=== PATIENT | male | born 1995 | race American Indian/Alaskan Native ===

== ENCOUNTER 2018-06-28 16:29 | Emergency (ER) | payer OTHER ==
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
[2018-06-28 17:36] VITALS: BP 126/65
--- NOTE | 2018-06-28 19:21 | XRay Report ---
PROCEDURE: XR SPINE CERVICAL 2-3V TECHNIQUE: 3 views cervical spine HISTORY: pain no reported trauma COMPARISONS: None FINDINGS: Normal cervical alignment. Vertebral body heights and disc space heights are maintained. Spinal clarissa ar line is not disrupted. Prevertebral soft tissues are normal. C1 lateral masses align normally on C2. The odontoid base is intact. Imaged lung apices are clear. There is no degenerative change. IMPRESSION: No acute fracture or subluxation. No significant degenerative disease.. This document is electronically signed by Vonda Merida MD., Jun 28 2018 07:20:05 PM ET
[2018-06-28] MEDS ORDERED: NORCO 5/325 PO STA (20:46)
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
== END 2018-06-28 21:30 | disposition home or self-care (01) ==
LOC: ED 16:29
DX: S16.1XXA Strain of muscle, fascia and tendon at neck level, initial encounter (principal); R51 Headache; V49.49XA Driver injured in collision with other motor vehicles in traffic accident, initial encounter; X58.XXXA Exposure to other specified factors, initial encounter; Y93.89 Activity, other specified; Y92.89 Other specified places as the place of occurrence of the external cause; Y99.8 Other external cause status
CPT/HCPCS: 72040